=== PATIENT | female | born 1960 | race Two or more races ===

== ENCOUNTER → 2016-11-19 | Outpatient (CLI) | payer OTHER ==
--- NOTE | ~2016-11-19 | MR113 ---
[facility] A Service of [facility] & [facility] RADIOLOGY TEXT RESULTS PATIENT: PIETER GALAVIZ LOCATION: [facility] : 64 UNIT #: [id number] AGE: [address]: Johnathan Gracia MD SEX: F ORDER DR: [id number] [facility] [address] [place], [place] [address] [id number] O MR#: [id number] Acc #: [id number] NAME: PIETER GALAVIZ : 1960 SEX: F STUDY DATE/TIME: 11/19/2016 15:04 UNIT: [facility] ROOM: STUDY DESCRIPTION: MR Lumbar Wo Contrast Attending Physician: Johnathan Gracia M.D. Ordering Physician: Johnathan Gracia M.D. Primary Care Physician: Johnathan Gracia M.D. MRI CENTER REPORT This report is preliminary unless electronic signature is present. EXAM MRI of the lumbar spine without contrast dated 11/19/[address] abdomen and pelvis with contrast dated 05/24/2015. HISTORY Chronic low back pain which extends to both legs for years. There is more pain in the right leg and it is getting worse in the last 6 months. FINDINGS Multisequence, multiplanar imaging of the lumbar spine was obtained without contrast. Vertebral body heights and alignment are preserved. There is a hypointense T1 signal 7.5 mm lesion with some peripheral increased T1 signal in the posterior and upper body of L2. It has no associated pathological fracture or extraosseous soft tissue components. It is not well seen in the fat sat images. Nonspecific. It is not well seen on the CT abdomen from 05/24/2015 either. Degenerative disc signal loss is at L5-S1. Conus terminates at T12-L1. Signal of conus and cauda equina are within normal limits. Increased T2 signal 1.2 cm lesion is noted in the right side of S2-3 level within the bony canal. It is probably associated with right S2 or S3 nerve root. 2 similar lesions are noted in the left at the level of S2 and S2-3. They are not well seen on CT. 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 Pre- and paravertebral soft tissues, retroperitoneum do not demonstrate any significant abnormality. L1-2: Unremarkable. L2-3: Small left foraminal to extraforaminal protrusion with minimal left neural foraminal encroachment without nerve impingement. L3-4: Mild disc bulge which is slightly prominent in the left foraminal to extraforaminal region suspicious for a small protrusion with mild STS. [facility] A Service of [facility] RADIOLOGY TEXT RESULTS PATIENT: PIETER GAALVIZ LOCATION: [facility] : 64 UNIT #: [id number] AGE: [address]: Johnathan Gracia MD SEX: F ORDER DR: inferior left neural foraminal narrowing. L4-5: Concentric disc bulge with mild inferior bilateral neural foraminal narrowing. Minimal bilateral facet changes are noted with mild canal stenosis. L5-S1: Concentric disc bulge with superimposed left [id number] subarticular broad-based disc protrusion with a small extruded component in the right subarticular to central region with mild inferior migration measuring less than a cm in height. There is mild impingement of right S1 nerve root. IMPRESSION 1. Degenerative changes are worse at L5-S1 with a right central to subarticular moderate protrusion/small extrusion with inferior migration. It impinges on the right S1 nerve root. 2. Increased T2-signal lesions are noted at the level of S2 and S2-3 segments on both sides measuring about 1.1 cm and lesser. 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 Without contrast, other lesions like nerve sheath tumor cannot be excluded. 3. There is a nonspecific 7.5 mm lesion with decreased T1 signal and some minimal peripheral increased T1 signal in the mid to right paramidline aspect of posterior L2 vertebral body. It is not clearly correlated in the sagittal T2 sequence. Minimal increased T2 signal in this region cannot be excluded. The CT of the abdomen did not demonstrate any significant abnormality at this level. No associated pathological fracture or extraosseous soft tissue components are seen. Without any history of malignancy, lesions like metastasis are less likely. Clinical correlation and depending on the need, followup imaging can be considered with contrast in 1 year or sooner if there is any pertinent history. Dictated by... Dameon Rangel M.D. THIS IS AN ELECTRONICALLY VERIFIED REPORT Dameon Rangel M.D. at 11/22/2016 3:11 PM CPR/maye TD: 11/21/2016 08:15 JOB #: [id number] MRI CENTER REPORT Page 1 of 1 COPY
== END | disposition home or self-care (01) ==
LOC: CMRI 14:31
DX: M54.41 Lumbago with sciatica, right side (principal); M51.27 Other intervertebral disc displacement, lumbosacral region; M47.817 Spondylosis without myelopathy or radiculopathy, lumbosacral region; R93.7 Abnormal findings on diagnostic imaging of other parts of musculoskeletal system
CPT/HCPCS: 72148

== ENCOUNTER → 2017-02-14 | Outpatient (CLI) | payer MEDICARE, OTHER ==
--- NOTE | ~2017-02-14 | MY29 ---
[facility] A Service of [facility] RADIOLOGY TEXT RESULTS PATIENT: PIETER GALAVIZ LOCATION: [facility] : 64 UNIT #: [id number] AGE: [address]: Johnathan Gracia MD SEX: F ORDER DR: [id number] [place] [id number] [facility] [place], [place] [address] [id number] O MR#: [id number] Acc #: [id number] NAME: PIETER GALAVIZ : 1960 SEX: F STUDY DATE/TIME: 02/14/2017 10:03 UNIT: [facility] ROOM: STUDY DESCRIPTION: MY LASHAWN SCREENING W/ CAD BILAT Attending Physician: Johnathan Gracia M.D. Referring Physician: Johnathan Gracia M.D. Ordering Physician: Johnathan Gracia M.D. Primary Care Physician: Johnathan Gracia M.D. MEDICAL IMAGING REPORT This report is preliminary unless electronic signature is present EXAM Digital screening mammogram 02/14/2017 HISTORY 56-year-old woman no risk elevation. Previous needle biopsy 2013 left breast. COMPARISON Mammograms date to 05/10/2011 with most recent 01/13/2016 FINDINGS Digital imaging of each breast was completed utilizing a two-view examination of each breast in craniocaudal and mediolateral-oblique projections. Review and interpretation of digital mammograms include a second review in conjunction with FDA-approved CAD device. There is a normal parenchymal presentation bilaterally consistent with the patient's age. There are no breast masses imaged and no parenchymal asymmetry is visualized. There are no suspicious microcalcifications and I see no focal architectural disturbance. IMPRESSION Negative screening digital mammogram. One-year followup recommended. Patients over the age of 40 are entered into a reminder system with target due date for the next mammogram. A result letter will also be sent to the patient. BIRADS: 1 Negative ADDENDUM Image guided biopsy marker stable left breast parenchyma is fatty replaced. [facility] A Service of [facility] RADIOLOGY TEXT RESULTS PATIENT: PIETER GALAVIZ LOCATION: [facility] : 64 UNIT #: [id number] AGE: [address]: Johnathan Gracia MD SEX: F ORDER DR: Dictated by... Aden Gann M.D. THIS IS AN ELECTRONICALLY VERIFIED REPORT Aden Gann M.D. at 02/15/2017 8:07 AM DALI/shabnam TD: 02/14/2017 14:47 JOB #: [id number] MEDICAL IMAGING REPORT Page 1 of 1 COPY
== END | disposition home or self-care (01) ==
LOC: CWCC 09:37
DX: Z12.31 Encounter for screening mammogram for malignant neoplasm of breast (principal)
CPT/HCPCS: G0202

== ENCOUNTER → 2017-02-22 | Outpatient (CLI) | payer MEDICARE, OTHER ==
--- NOTE | ~2017-02-22 | US85 ---
[facility] A Service of [facility] RADIOLOGY TEXT RESULTS PATIENT: PIETER GALAVIZ LOCATION: [facility] : 64 UNIT #: [id number] AGE: [address]: Johnathan Gracia MD SEX: F ORDER DR: [id number] [facility] [address] [place], [place] [address] [id number] O MR#: [id number] Acc #: [id number] NAME: PIETER GALAVIZ : 1960 SEX: F STUDY DATE/TIME: 02/22/2017 14:28 UNIT: [facility] ROOM: STUDY DESCRIPTION: [facility] Attending Physician: Johnathan Gracia M.D. Referring Physician: Johnathan Gracia M.D. Ordering Physician: Viky Menjivar A.P.R.N. Primary Care Physician: Johnathan Gracia M.D. MEDICAL IMAGING REPORT This report is preliminary unless electronic signature is present EXAM Left lower extremity venous duplex 02/22/2017 HISTORY Left lower extremity pain and edema for 2 months. Hypertension, diabetes, hyperlipidemia. TECHNIQUE Venous ultrasound examination of the left lower extremity was performed using grayscale, spectral Doppler and color flow Doppler imaging. FINDINGS The examination is negative. There is no evidence of left lower extremity deep venous thrombus from the groin to the lower calf. Visualized greater saphenous vein is also patent. IMPRESSION Negative examination. No evidence of left lower extremity deep venous thrombosis. Dictated by... Chas Etienne M.D. THIS IS AN ELECTRONICALLY VERIFIED REPORT Chas Etienne M.D. at 02/25/2017 6:07 AM CHELE/dorina TD: 02/22/2017 20:11 JOB #: [id number] MEDICAL IMAGING REPORT Page 1 of 1 COPY
== END | disposition home or self-care (01) ==
LOC: CNIV 13:24
DX: M79.662 Pain in left lower leg (principal); M79.89 Other specified soft tissue disorders
CPT/HCPCS: 93971